=== PATIENT | female | born 1995 | race Caucasian/White ===

== ENCOUNTER 2019-09-30 22:12 | Emergency (ER) | payer MEDICAID ==
[~2019-09-30] VITALS: Ht 160 cm; Wt 102.1 kg
--- NOTE | 2019-09-30 22:12 | NUR ---
PT BIBA BLS TO ER BED 03
[2019-09-30 22:20] VITALS: BP 132/73
--- NOTE | 2019-09-30 22:25 | NUR ---
23 YO FEMALE BIBA FOR DRUG INGESTION/INTERACTION TODAY. PT TOOK COUGH SYRUP AND SMOKED MARIJUANA. PT FELL ASLEEP AND WOKE UP WITH TINGLING FEELING IN CHEST AND KEGS. PT HAS NO PAIN AT THIS TIME. NO RX MEDS AND NO PAST MED HX. PT RESTING IN BED WITH ONE SIDE RIAL UP FOR SAFETY.
[2019-10-01 00:13] VITALS: BP 132/73
--- NOTE | 2019-10-01 00:14 | NUR ---
Patient discharged with v/s stable. Written and verbal after care instructions given and explained. Patient verbalized understanding. Ambulatory with steady gait. All questions addressed prior to discharge. Advised to follow up with PMD.
== END 2019-10-01 00:14 | disposition home or self-care (01) ==
LOC: MED 22:12
DX: T88.7XXA Unspecified adverse effect of drug or medicament, initial encounter (principal); M79.605 Pain in left leg; M79.604 Pain in right leg; R50.9 Fever, unspecified; R05 Cough; F12.10 Cannabis abuse, uncomplicated; Z98.890 Other specified postprocedural states; X58.XXXA Exposure to other specified factors, initial encounter; Y93.89 Activity, other specified; Y92.89 Other specified places as the place of occurrence of the external cause; Y99.8 Other external cause status
CPT/HCPCS: 99281

== ENCOUNTER 2022-10-17 15:49 | Emergency (ER) | payer MEDICAID ==
[~2022-10-17] VITALS: Ht 175.3 cm; Wt 90.7 kg
[2022-10-17 15:52] VITALS: BP 126/84
[2022-10-17] MEDS ORDERED: KETOROLAC 30 MG/ML VIAL IM ONE (16:25)
[2022-10-17] MEDS ORDERED: CYCL-711 PO (16:34)
[2022-10-17] MEDS ORDERED: IBUP-2213 PO (16:34)
[2022-10-17] MEDS ORDERED: METH4TAB1 PO (16:34)
[2022-10-17] MEDS ORDERED: LID5T TP (16:34)
[2022-10-17 17:46] VITALS: BP 126/84
--- NOTE | 2022-10-17 17:46 | NUR ---
Patient discharged with v/s stable. Written and verbal after care instructions given and explained. Patient alert, oriented and verbalized understanding of instructions. Wheel Chair Assisted with MOTHER to car. All questions addressed prior to discharge. ID band removed. Patient advised to follow up with PMD. Rx of CYCLOBENZAPRINE, IBUPROFEN, LIDODERM, METHYLPREDNISONE (SENT) given. Patient educated on indication of medication including possible reaction and side effects. Opportunity to ask questions provided and answered. PT REFUSING TO SIGN DISCHARGE PAPERWORK AT THIS TIME.
--- NOTE | 2022-10-17 17:59 | NUR ---
PT AGGRESIVE AND UPSET WITH RODRICK TOSCANO REGARDING CARE. PT STATES "GO TO HELL" TOSCANO RODRICK WALKED BY. EXPLAINED TO PT THAT PROVIDER DID NOT RX ANY OTHER MEDICATION FOR PAIN OR TREATMENT AT THIS TIME AND SHE IS DC. PT BECAME ANGRY WITH RN. PT ASSISTED BY WHEELCHAIR TO CAR FOR DC HOME
== END 2022-10-17 17:46 | disposition home or self-care (01) ==
LOC: MED 15:49
DX: S39.012A Strain of muscle, fascia and tendon of lower back, initial encounter (principal); X58.XXXA Exposure to other specified factors, initial encounter; Y92.89 Other specified places as the place of occurrence of the external cause; Y93.89 Activity, other specified; Y99.8 Other external cause status
CPT/HCPCS: 96372; 99283; J1885